=== PATIENT | female | born 1990 | race Native Hawaiian/Other Pacific Islander ===

== ENCOUNTER 2021-12-27 08:19 | Outpatient (CLI) | payer BC | END 2021-12-27 19:13 | disposition home or self-care (01) | LOC: CT 08:19 | PROVIDERS: ATTEND Internal Medicine | DX: I77.74 Dissection of vertebral artery (principal); R42 Dizziness and giddiness; I77.1 Stricture of artery; H53.8 Other visual disturbances; R26.81 Unsteadiness on feet; M47.029 Vertebral artery compression syndromes, site unspecified; I65.09 Occlusion and stenosis of unspecified vertebral artery | CPT/HCPCS: 36415; 82565; 84520; Q9963 ==